=== PATIENT | female | born 1980 | race Caucasian/White ===

== ENCOUNTER 2024-06-01 13:25 | Emergency (ER) | payer OTHER ==
[~2024-06-01] VITALS: Ht 154.9 cm; Wt 72.1 kg
[2024-06-01 13:48] VITALS: BP 125/83; PULSE 78; RESP 18; TEMP 97.9; O2SAT 100
[2024-06-01 14:57] LABS: APPEARANCE,URINE SL CLOUDY (CLEAR); BILIRUBIN,URINE NEGATIVE (NEGATIVE); BLOOD, URINE 2+ (NEGATIVE); COLOR,URINE YELLOW (YELLOW); LEUKOCYTE ESTERASE ,URINE 2+ (NEGATIVE); NITRITE, URINE NEGATIVE (NEGATIVE); PROTEIN,URINE NEGATIVE (NEGATIVE); UGLUCOSE NEGATIVE (NEGATIVE); UROBILINOGEN,URINE 0.2 EU/dL (0.2 - 1)
[2024-06-01 15:14] LABS: BACTERIA,URINE 10-30 (MOD) /HPF (None Seen); SQUAMOUS EPITHELIAL CELL,UR 4-10 (MOD) /LPF (0-3 (FEW))
[2024-06-01] MEDS ORDERED: PHEN-1877 PO (16:05)
[2024-06-01] MEDS ORDERED: CEPH-588 PO (16:05)
[2024-06-01 16:12] VITALS: BP 122/82; PULSE 74; RESP 16; TEMP 97.9; O2SAT 100
== END 2024-06-01 16:12 | disposition home or self-care (01) ==
LOC: MED 13:25
DX: N39.0 Urinary tract infection, site not specified (principal); Z79.899 Other long term (current) drug therapy
CPT/HCPCS: 81001; 81025; 87086; 87186; 99283